=== PATIENT | male | born 1965 | race Caucasian/White ===

== ENCOUNTER 2017-11-03 04:42 | Emergency (ER) | payer BC ==
[~2017-11-03] VITALS: Ht 182.9 cm; Wt 88.5 kg
[2017-11-03 04:44] VITALS: Ht 182.9 cm; Wt 88.5 kg
[2017-11-03 05:21] LABS: BASOPHIL % 0.6 % (0-2); PLATELET COUNT 163 x10^3mcL (130-400); RED CELL DISTRIBUTION WIDTH 13.6 % (11.5-14.5)
[2017-11-03 05:46] VITALS: BP 125/85
== END 2017-11-03 05:46 | disposition home or self-care (01) ==
LOC: ED 04:42
PROVIDERS: Emergency Medicine
DX: R04.0 Epistaxis (principal); I10 Essential (primary) hypertension; E85.9 Amyloidosis, unspecified; Z91.013 Allergy to seafood
CPT/HCPCS: 36415; J3490